=== PATIENT | female | born 1960 | race Caucasian/White ===

== ENCOUNTER 2017-07-03 17:31 | Emergency (ER) | payer OTHER ==
[~2017-07-03] VITALS: Ht 172.7 cm; Wt 98.0 kg
[2017-07-03 17:37] VITALS: BP 143/85; PULSE 80; RESP 16; TEMP 98.7; O2SAT 99
[2017-07-03] MEDS ORDERED: MUPI2%T TOPICAL (18:44)
[2017-07-03] MEDS ORDERED: TRAM50 PO (18:44)
[2017-07-03] MEDS ORDERED: CLIN300C5 PO (18:44)
--- NOTE | 2017-07-03 18:51 | PD ---
HPI Chief Complaint: Skin Problem Time Seen by Provider: 18:29 Travel History International Travel<30 days: No Contact w/Intl Traveler<30days: No Traveled to known affect area: No History of Present Illness HPI This is a 56-year-old female here for evaluation of right great toe pain. She reports she was diagnosed with an infected ingrown toenail 1 week ago and placed on Pen-Vee K. Today she went to [facility] to have ingrown toenail removal. She reports that the digital block was not successful and she felt extreme pain during the toenail removal. Per patient podiatry told her she would have to go to the ER for sedation to complete the procedure. She denies fever chills. No altered sensation in the toe. She reports the redness and swelling of the toe have improved after starting the penicillin. Symptom severity is moderate. PFSH Past Medical History Medical History: Denies Significant Hx Hx Anticoagulant Therapy: No ?: Not Social History Tobacco Use: No Allergies-Medications (Allergen,Severity, Reaction): Coded Allergies: No Known Allergies (Unverified , 07/03/17) Review of Systems Except as stated in HPI: all other systems reviewed are Neg General / Constitutional: No: Fever Physical Exam Narrative GENERAL: Alert and well-appearing 56-year-old female SKIN: Warm and dry. HEAD: Normocephalic. EYES: No injection or drainage. NECK: Supple RESPIRATORY: No respiratory distress GASTROINTESTINAL: nondistended. MUSCULOSKELETAL: No cyanosis, or edema. Right foot: Right great toe with partial medial nail removal. Nailbed is healthy-appearing. There is mild erythema to the medial nail fold. Normal sensation to the toe and foot. Patient is able to flex and extend the toe. Data Data Last Documented VS Vital Signs Date Time Temp Pulse Resp B/P (MAP) Pulse Ox O2 Delivery O2 Flow Rate FiO2 07/03/17 17:37 98.7 80 16 143/85 (104) 99 MDM Medical Decision Making Medical Screen Exam Complete: Yes Emergency Medical Condition: Yes Differential Diagnosis Infected ingrown toenail, postsurgical pain, wound recheck Narrative Course This is a 56-year-old female here for evaluation of toe pain after having ingrown toenail removal today. 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 On exam she has what appears to be a completed partial nail removal for treatment of ingrown toenail. She does have some continued erythema to the medial aspect of the toe despite being on penicillin. Her antibiotics will be changed to clindamycin. She is referred to follow-up with podiatry. Diagnosis Primary Impression: Toe pain Qualified Codes: M79.674 - Pain in right toe(s) Referrals: Delphine Jules DPM Additional Instructions: Antibiotics as directed. Pain medication as directed. Apply a thin layer of antibiotic ointment and cover with a dressing daily Do not submerge the wound in water. Showering is okay Scripts Mupirocin Topical (Bactroban Topical) 22 Gm Cream 1 APPLIC TOPICAL TID for Mgmt Bacterial Infection, #1 TUBE 0 Refills Prov: Freya Christopher 07/03/17 Tramadol (Ultram) 50 Mg Tab 50 MG PO Q6H Y for PAIN, #12 TAB 0 Refills Prov: Freya Christopher 07/03/17 Clindamycin (Clindamycin) 300 Mg Cap 300 MG PO Q6H for Infection for 7 Days, #28 CAP 0 Refills Prov: Freya Christopher 07/03/17 Disposition: 01 DISCHARGE HOME Condition: Stable Freya Christopher Jul 03, 2017 18:51
== END 2017-07-03 19:20 | disposition home or self-care (01) ==
LOC: PHEFT 17:31
DX: M79.674 Pain in right toe(s) (principal)
CPT/HCPCS: 99283